=== PATIENT | female | born 1980 | race American Indian/Alaskan Native ===

== ENCOUNTER 2022-01-22 05:57 | Emergency (ER) | payer SELFPAY ==
--- NOTE | 2022-01-22 06:40 | XRay Report ---
LEFT FOREARM 2 VIEW(S) INDICATION / CLINICAL INFORMATION: INJURY COMPARISON: None available. FINDINGS: BONES / JOINT(S): Acute nondisplaced radial head fracture and associated anterior fat pad displacemen t. No significant arthritis. SOFT TISSUES: No significant abnormality. ADDITIONAL FINDINGS: None. IMPRESSION: 1. Acute nondisplaced radial head fracture and associated anterior fat pad displacement. LEFT WRIST 3 VIEW(S) INDICATION / CLINICAL INFORMATION: INJURY COMPARISON: None available. FINDINGS: BONES / JOINT(S): No acute fracture or subluxation. No significant arthritis. SOFT TISSUES: No significant abnormality. ADDITIONAL FINDINGS: None. IMPRESSION: 1. No acute findings. LEFT ELBOW 3 VIEW(S) INDICATION / CLINICAL INFORMATION: INJURY COMPARISON: None available. FINDINGS: BONES / JOINT(S): Acute nondisplaced radial head fracture and associated anterior fat pad displacemen t. No significant arthritis. SOFT TISSUES: No significant abnormality. ADDITIONAL FINDINGS: None. IMPRESSION: 1. Acute nondisplaced radial head fracture and associated anterior fat pad displacement. Signer Name: Shant Keyes MD Signed: 01/22/2022 6:36 AM Workstation Name: [id number]
[2022-01-22] MEDS ORDERED: oxyCODONE /ACETAMINOPHEN 5-325MG TAB PO ONE (12:06)
[2022-01-22] MEDS ORDERED: KETOROLAC 10 MG TAB PO ONE (12:06)
[2022-01-22] MEDS ORDERED: ONDANSETRON 4 MG ODT TAB PO ONE (13:15)
[2022-01-22] MEDS ORDERED: MORPHINE 4 MG/1 ML INJ IM ONE (13:15)
--- NOTE | 2022-01-22 13:17 | Emergency Department Report ---
ED Upper Extremity Inj HPI - General Chief Complaint: Extremity Injury, Upper Stated Complaint: FALL/LEFT ARM INJURY Time Seen by Provider: 01/22/22 11:01 Source: patient Mode of arrival: Ambulatory Limitations: No Limitations - History of Present Illness MD Complaint: Injury to:: left, elbow, forearm -: Sudden, This morning Other Extremity Injury: Elbow: Left, Arm: Left Other Injuries: none Severity scale (0 -10): 10 Worsens With: movement of extremity Context: fall Associated Symptoms: denies other symptoms - Related Data Previous Rx's Medication Instructions Recorded Last Taken Type Acetaminophen/Codeine [Tylenol 1 tab PO Q6H PRN #12 tab 01/22/22 Unknown Rx /Codeine # 3 tab] Ketorolac [Toradol] 10 mg PO Q6H PRN #12 tab 01/22/22 Unknown Rx methOCARBAMOL [Robaxin TAB] 750 mg PO Q8H PRN #30 tab 01/22/22 Unknown Rx Allergies Allergy/AdvReac Type Severity Reaction Status Date / Time Penicillins Allergy Unknown Verified 01/22/22 06:04 ED Review of Systems ROS: Stated complaint: FALL/LEFT ARM INJURY Other details as noted in HPI Constitutional: denies: chills, fever Eyes: denies: eye pain, eye discharge, vision change ENT: denies: ear pain, throat pain Respiratory: denies: cough, shortness of breath, wheezing Cardiovascular: denies: chest pain, palpitations Endocrine: no symptoms reported Gastrointestinal: denies: abdominal pain, nausea, diarrhea Genitourinary: denies: urgency, dysuria, discharge Musculoskeletal: denies: back pain, joint swelling, arthralgia Skin: denies: rash, lesions Neurological: denies: headache, weakness, paresthesias Psychiatric: denies: anxiety, depression Hematological/Lymphatic: denies: easy bleeding, easy bruising ED Past Medical Hx - Past Medical History Previous Medical History?: Yes - Surgical History Past Surgical History?: Yes - Social History Smoking Status: Unknown if ever smoked - Medications Home Medications: Home Medications Medication Instructions Recorded Confirmed Last Taken Type Acetaminophen/Codeine [Tylenol 1 tab PO Q6H PRN #12 tab 01/22/22 Unknown Rx /Codeine # 3 tab] Ketorolac [Toradol] 10 mg PO Q6H PRN #12 tab 01/22/22 Unknown Rx methOCARBAMOL [Robaxin TAB] 750 mg PO Q8H PRN #30 tab 01/22/22 Unknown Rx ED Physical Exam - General Limitations: No Limitations General appearance: alert, in no apparent distress - Head Head exam: Present: atraumatic, normocephalic - Eye Eye exam: Present: normal appearance - ENT ENT exam: Present: mucous membranes moist - Neck Neck exam: Present: normal inspection - Respiratory Respiratory exam: Present: normal lung sounds bilaterally. Absent: respiratory distress - Cardiovascular Cardiovascular Exam: Present: regular rate, normal rhythm. Absent: systolic murmur, diastolic murmur, rubs, gallop - GI/Abdominal GI/Abdominal exam: Present: soft, normal bowel sounds - Extremities Exam Extremities exam: Present: normal inspection - Expanded Upper Extremity Exam Left Upper Arm exam: Present: normal inspection Elbow exam: Present: tenderness, swelling. Absent: full ROM, crepidus, erythema Forearm Wrist exam: Present: tenderness, swelling. Absent: erythema Hand Wrist exam: Present: normal inspection Vascular: Present: normal capillary refill, radial pulse. Absent: vascular compromise, Pallo - Back Exam Back exam: Present: normal inspection - Neurological Exam Neurological exam: Present: alert, oriented X3 - Psychiatric Psychiatric exam: Present: normal affect, normal mood - Skin Skin exam: Present: warm, dry, intact, normal color. Absent: rash ED Course Vital Signs 01/22/22 01/22/22 01/22/22 06:02 12:26 13:26 Temperature 97.8 F Pulse Rate 85 Respiratory 20 14 14 Rate Blood Pressure 149/85 Blood Pressure [Right] O2 Sat by Pulse 100 Oximetry 01/22/22 13:55 Temperature 98.7 F Pulse Rate 74 Respiratory 14 Rate Blood Pressure Blood Pressure 118/70 [Right] O2 Sat by Pulse 100 Oximetry - Orthopedic Splinting/Casting Injury #1 Side: left Upper Extremity Injury Location: elbow Upper Extremity Immobilizer: posterior splint (melinda with elbow at 90 degress) Additional Comments: CMS intact after placement and patient tolerated well. ED Medical Decision Making - Radiology Data Radiology results: report reviewed, image reviewed LEFT FOREARM 2 VIEW(S) INDICATION / CLINICAL INFORMATION: INJURY COMPARISON: None available. FINDINGS: BONES / JOINT(S): Acute nondisplaced radial head fracture and associated anterior fat pad displacement. No significant arthritis. SOFT TISSUES: No significant abnormality. ADDITIONAL FINDINGS: None. IMPRESSION: 1. Acute nondisplaced radial head fracture and associated anterior fat pad displacement. LEFT WRIST 3 VIEW(S) INDICATION / CLINICAL INFORMATION: INJURY COMPARISON: None available. FINDINGS: BONES / JOINT(S): No acute fracture or subluxation. No significant arthritis. SOFT TISSUES: No significant abnormality. ADDITIONAL FINDINGS: None. IMPRESSION: 1. No acute findings. LEFT ELBOW 3 VIEW(S) INDICATION / CLINICAL INFORMATION: INJURY COMPARISON: None available. FINDINGS: BONES / JOINT(S): Acute nondisplaced radial head fracture and associated anterior fat pad displacement. No significant arthritis. SOFT TISSUES: No significant abnormality. ADDITIONAL FINDINGS: None. IMPRESSION: 1. Acute nondisplaced radial head fracture and associated anterior fat pad displacement. - Medical Decision Making Nondisplaced radial head fracture noted on xray. Patient placed in melinda splint with elbow at 90 degrees and sling. Patient d/jade home with pain meds and advised to follow up with orthopedics in 3-7 days for further evaluation and management. Critical care attestation.: If time is entered above; I have spent that time in minutes in the direct care of this critically ill patient, excluding procedure time. ED Disposition Clinical Impression: Left radial head fracture Qualifiers: Encounter type: initial encounter Fracture type: closed Fracture alignment: nondisplaced Qualified Code(s): S52.125A - Nondisplaced fracture of head of left radius, initial encounter for closed fracture Disposition: 01 HOME / SELF CARE / HOMELESS Is pt being admited?: No Does the pt Need Aspirin: No Condition: Stable Instructions: Cast or Splint Care, Adult, [id number], Radial Fracture Rehab- [facility], Radial Head Fracture, [id number] Additional Instructions: Take medications as prescribed. Follow-up with orthopedics in the next 4 to 5 days for reevaluation and further management. Return to the emergency department as needed. Prescriptions: methOCARBAMOL [Robaxin TAB] 750 mg PO Q8H PRN #30 tab PRN Reason: Muscle Spasm Ketorolac [Toradol] 10 mg PO Q6H PRN #12 tab PRN Reason: Pain Acetaminophen/Codeine [Tylenol /Codeine # 3 tab] 1 tab PO Q6H PRN #12 tab PRN Reason: Pain, Moderate (4-6) Referrals: SANCHO GUNN MD [Staff Physician] - 3-5 Days Time of Disposition: 13:17
[2022-01-22 13:57] VITALS: BP 118/70
== END 2022-01-22 13:56 | disposition home or self-care (01) ==
LOC: ED 05:57
DX: S52.125A Nondisplaced fracture of head of left radius, initial encounter for closed fracture (principal); Z98.890 Other specified postprocedural states; Z88.0 Allergy status to penicillin; Z79.899 Other long term (current) drug therapy; W18.39XA Other fall on same level, initial encounter; Y93.89 Activity, other specified; Y92.89 Other specified places as the place of occurrence of the external cause; Y99.8 Other external cause status
CPT/HCPCS: 29125; 73080; 73090; 73110; 96372; 99283; J2270; J3490; Q0162